=== PATIENT | male | born 1980 | race African-American/Black ===

== ENCOUNTER 2016-11-22 12:33 | Emergency (ER) | payer MEDICAID, MEDICARE ==
[~2016-11-22] VITALS: Ht 170.2 cm; Wt 71.0 kg
[~2016-11-22 12:33] MED LIST: DAYQUIL; IBUPROFEN; NYQUIL
[2016-11-22 13:38] LABS: CLARITY URINE CLEAR (CLEAR); COLOR URINE YELLOW (YELLOW); GLUCOSE URINE NEGATIVE (NEGATIVE); KETONES URINE TRACE (NEGATIVE); LEUKOCYTE ESTERASE URINE TRACE (NEGATIVE); NITRITE URINE NEGATIVE (NEGATIVE); OCCULT BLOOD URINE NEGATIVE (NEGATIVE); PROTEIN URINE NEGATIVE (NEGATIVE); SPECIFIC GRAVITY URINE 1.025 (1.005-1.030)
[2016-11-22 14:46] VITALS: BP 121/78
[2016-11-25 15:10] LABS: CHLAMYDIA TRACHOMATIS NAA Negative (Negative); NEISSERIA GONORRHOEAE NAA Negative (Negative)
== END 2016-11-22 14:48 | disposition home or self-care (01) ==
LOC: ER 12:34
DX: R39.15 Urgency of urination (principal)
CPT/HCPCS: 81001; 87086; 87491; 87591; 99284

== ENCOUNTER 2018-01-28 07:48 | Emergency (ER) | payer MEDICARE ==
[~2018-01-28] VITALS: Ht 170.2 cm; Wt 73.0 kg
[2018-01-28 08:03] VITALS: BP 116/71
== END 2018-01-28 09:24 | disposition home or self-care (01) ==
LOC: ER 07:48
DX: S61.217D Laceration without foreign body of left little finger without damage to nail, subsequent encounter (principal); W45.8XXD Other foreign body or object entering through skin, subsequent encounter
CPT/HCPCS: 99281

== ENCOUNTER 2018-02-15 07:20 | Emergency (ER) | payer MEDICARE ==
[~2018-02-15] VITALS: Ht 170.2 cm; Wt 73.0 kg
[2018-02-15 07:42] VITALS: BP 124/66
[2018-02-15 10:31] LABS: CLARITY URINE CLEAR (CLEAR); COLOR URINE DARK YELLOW (YELLOW); KETONES URINE TRACE (NEGATIVE); LEUKOCYTE ESTERASE URINE NEGATIVE (NEGATIVE); NITRITE URINE NEGATIVE (NEGATIVE); OCCULT BLOOD URINE NEGATIVE (NEGATIVE); PROTEIN URINE TRACE (NEGATIVE); SPECIFIC GRAVITY URINE 1.023 (1.005-1.030); UROBILINOGEN URINE 0.2 E.U./dL (0.2-1.0)
== END 2018-02-15 11:28 | disposition home or self-care (01) ==
LOC: ER 07:20
DX: H61.21 Impacted cerumen, right ear (principal); M54.5 Low back pain; X58.XXXA Exposure to other specified factors, initial encounter; Y93.67 Activity, basketball; Y92.89 Other specified places as the place of occurrence of the external cause; F17.210 Nicotine dependence, cigarettes, uncomplicated
CPT/HCPCS: 81003; 99283

== ENCOUNTER 2019-03-11 06:32 | Emergency (ER) | payer SELFPAY ==
[~2019-03-11] VITALS: Ht 170.2 cm; Wt 75.0 kg
[2019-03-11] MEDS ORDERED: ONDANSETRON HCL 4MG/2ML INJ IV ONE (07:00)
[2019-03-11] MEDS ORDERED: SODIUM CHLORIDE 0.9% 1,000 ML IV ONE (07:00)
[2019-03-11] MEDS ORDERED: KETOROLAC 15MG/ML VIAL IV ONE (07:00)
[2019-03-11 07:54] VITALS: BP 122/77
== END 2019-03-11 07:59 | disposition home or self-care (01) ==
LOC: ER 06:32
DX: G43.909 Migraine, unspecified, not intractable, without status migrainosus (principal); K11.8 Other diseases of salivary glands
CPT/HCPCS: 96374; 96375; 99283; J1885; J2405; J7030